=== PATIENT | male | born 1985 | race Caucasian/White ===

== ENCOUNTER 2018-12-20 19:52 | Emergency (ER) | payer OTHER ==
[~2018-12-20] VITALS: Ht 172.7 cm; Wt 72.6 kg
[~2018-12-20 19:52] MED LIST: NOHOMEMEDICATIONS
[2018-12-20] MEDS ORDERED: CELEXA20 MG PO (20:07)
[2018-12-20] MEDS ORDERED: XANAX 0.5 MG0.5 M1 PO (20:07)
[2018-12-20] MEDS ORDERED: XANAX1 MG PO (20:37)
[2018-12-20 20:47] VITALS: BP 146/84
--- NOTE | 2018-12-21 12:29 | EKG ---
[place] [address] ELECTROCARDIOGRAM REPORT Name: AFTAB RESTREPO Room: [facility]#: [id number] Admission: 12/20/18 Attend Phys: Discharge: 12/20/18 Date of : 85 Report #: [id number] THIS REPORT FOR: //name// [facility] ED Test Date: 2018-12-20 Test Time: 20:30:43 Pat Name: AFTAB RESTREPO Department: Room: Gender: M [employer] Consultant: : 1985 Requested By: Dawit Kim Order Number: [id number] MD: Timothy Reece Measurements Intervals [place] Rate: 80 P: 40 [place]: 155 QRS: 64 QRSD: 105 T: 50 QT: 378 QTc: 436 Interpretive Statements Sinus rhythm RSR' in V1 or V2, right VCD ST elev, probable normal early repol pattern No previous ECG available for comparison Electronically Signed On 12-21-2018 12:29:50 CDT by Timothy Reece [email or web address] <ELECTRONICALLY SIGNED> By: Timothy Reece MD, [facility] 12/21/18 1229 29 29 Timothy Reece MD, FACC /EPI
== END 2018-12-20 20:48 | disposition home or self-care (01) ==
LOC: M.ERS 19:52
DX: F41.0 Panic disorder [episodic paroxysmal anxiety] (principal); Z76.0 Encounter for issue of repeat prescription